=== PATIENT | female | born 1980 | race Caucasian/White ===

== ENCOUNTER 2017-02-04 14:26 | Emergency (ER) | payer OTHER ==
[~2017-02-04] VITALS: Ht 157.5 cm; Wt 65.3 kg
[~2017-02-04 14:26] MED LIST: ACETAMINOPHEN325 MG PO; IBUPROFEN 600600 M1 PO; IBUPROFEN200 M1 PO; LISINOPRIL-HCT1 EACH PO; NORCO 5-325 TA1 EACH PO; NORFLEX100 MG PO; UNICOMPLEX M TA1 TA1 PO; ZOFRAN ODT4 MG PO
[2017-02-04 14:27] VITALS: BP 143/92
[2017-02-04] MEDS ORDERED: PENICILLIN V P500 MG PO (14:43)
[2017-02-04] MEDS ORDERED: NORCO 5-325 TA1 EACH PO (14:57)
== END 2017-02-04 15:04 | disposition home or self-care (01) ==
LOC: ER 14:26
DX: K02.9 Dental caries, unspecified (principal); G43.909 Migraine, unspecified, not intractable, without status migrainosus; I10 Essential (primary) hypertension; Z88.8 Allergy status to other drugs, medicaments and biological substances